=== PATIENT | female | born 1970 | race Caucasian/White ===

== ENCOUNTER 2016-12-10 13:57 | Emergency (ER) | payer MEDICAID ==
[2016-12-10 14:12] VITALS: BP 124/69
--- NOTE | 2016-12-10 15:00 | EDM.PDOC ---
ED HPI GENERAL MEDICAL PROBLEM - General Chief Complaint: Chest Pain Stated Complaint: CHEST PAIN Time Seen by Provider: 12/10/16 14:20 Source of Information: Reports: Patient History Limitations: Reports: No Limitations - History of Present Illness INITIAL COMMENTS - FREE TEXT/NARRATIVE: 46-year-old female with generalized malaise for the past week to 10 days, mild intermittent cough and shortness of breath today was lightheaded, woozy, and has had several episodes of brief sharp left anterior chest pain over the past 2 -3 days. She talked to her coworker who has some medical experience and she recommended she come in to be checked. On arrival she is having no pain, although she did have 2 very brief episodes while I was visiting with her. She points to a local area on the left anterior chest. No cough that is productive. Onset: Gradual (Over the past 7-10 days) Location: Reports: Chest Severity: Mild Associated Symptoms: Reports: Chest Pain, Cough, Other (Dizziness and lightheadedness) - Related Data Allergies Allergy/AdvReac Type Severity Reaction Status Date / Time No Known Allergies Allergy Verified 12/10/16 14:06 Home Meds: Home Meds Hydrocodone/Acetaminophen [[place] 5-325] 1 - 2 tab PO Q4H PRN #14 tablet [Rx] Ondansetron [Zofran ODT] 4 mg PO Q6H PRN #7 tab.dis 11/23/15 [Rx] Past Medical History [employer] History: Reports: Other Psychiatric History: SAD - Past Surgical History Female Surgical History: Reports: Section Musculoskeletal Surgical History: Reports: Arthroscopic Knee, Shoulder Surgery Social & Family History - Tobacco Use Smoking Status *Q: Unknown Ever Smoked Years of Tobacco use: 18 Packs/Tins Daily: 0.5 Second Hand Smoke Exposure: No - Caffeine Use Caffeine Use: Reports: Coffee - Alcohol Use Days Per Week of Alcohol Use: 0 Number of Drinks Per Day: 3 Total Drinks Per Week: 0 - Recreational Drug Use Recreational Drug Use: No ED ROS GENERAL - Review of Systems Review Of Systems: See Below Constitutional: Reports: Malaise, Weakness. Denies: Fever, Chills HEENT: Reports: Other (Some nasal congestion and posterior drainage) Respiratory: Reports: Cough. Denies: Shortness of Breath, Sputum Cardiovascular: Reports: Chest Pain (Intermittent left-sided focal tenderness, sharp and brief) GI/Abdominal: Reports: No Symptoms : Reports: No Symptoms Musculoskeletal: Reports: Muscle Pain (Generalized muscle aches) Skin: Reports: No Symptoms Neurological: Reports: Dizziness. Denies: Headache Psychiatric: Reports: No Symptoms ED EXAM, GENERAL - Physical Exam Exam: See Below Exam Limited By: No Limitations General Appearance: Alert, No Apparent Distress Eye Exam: Bilateral Eye: Normal Inspection Throat/Mouth: Normal Inspection Head: Atraumatic Respiratory/Chest: No Respiratory Distress, Lungs Clear Cardiovascular: Regular Rate, Rhythm GI/Abdominal: Non-Tender Extremities: No: Pedal Edema Neurological: Alert, Oriented Skin Exam: Warm, Dry Course - Vital Signs Last Recorded V/S: Last Vital Signs Temp 98.4 F 12/10/16 14:04 Pulse 80 12/10/16 14:04 Resp 14 12/10/16 14:04 BP 124/69 12/10/16 14:04 Pulse Ox 97 12/10/16 14:04 - Orders/Labs/Meds Orders: Active Orders 24 hr Category Date Time Status Chest 2V [CR] Routine Exams 12/10/16 14:29 Taken Labs: Laboratory Tests 12/10/16 12/10/16 Range/Units 14:42 14:42 WBC 9.9 (4.5-11.0) K/uL RBC 4.33 (3.30-5.50) M/uL Hgb 13.8 (12.0-15.0) g/dL Hct 40.8 (36.0-48.0) % MCV 94 (80-98) fL MCH 32 H (27-31) pg MCHC 34 (32-36) % Plt Count 261 (150-400) K/uL Neut % (Auto) 69 H (36-66) % Lymph % (Auto) 22 L (24-44) % [place] % (Auto) 8 H (2-6) % Eos % (Auto) 1 L (2-4) % Baso % (Auto) 0 (0-1) % Sodium 140 (140-148) mmol/L Potassium 3.9 (3.6-5.2) mmol/L Chloride 106 (100-108) mmol/L Carbon Dioxide 28 (21-32) mmol/L Anion Gap 6.4 (5.0-14.0) mmol/L BUN 12 (7-18) mg/dL Creatinine 0.9 (0.6-1.0) mg/dL Est Cr Clr Drug Dosing 77.57 mL/min Estimated GFR (MDRD) > 60 (>60) Glucose 82 (74-106) mg/dL Calcium 8.9 (8.5-10.1) mg/dL Troponin I < 0.017 (0.000-0.056) ng/mL - Re-Assessments/Exams Free Text/Narrative Re-Assessment/Exam: 12/10/16 15:00 O2 saturations are normal, patient is in a normal sinus rhythm with a rate of 70 is 75. Because of the prolonged symptoms a two-view chest x-ray, CBC BMP and troponin were obtained. 12/10/16 15:14 chest x-ray was normal. CBC was normal. BMP was normal troponin was 0. Discussed the symptoms with the patient, reassured her that this is likely a viral syndrome or bronchitis with a small amount costochondritis. She elected to give it some more time and will return if worsening. Departure - Departure Time of Disposition: 15:23 Disposition: Home, Self-Care 01 Clinical Impression: Viral bronchitis, Costochondritis, acute - Discharge Information Instructions: Nonspecific Chest Pain, [id number] Referrals: Jasmina Cox CNM [Primary Care Provider] - Forms: ED Department Discharge Care Plan Goals: Continue activity as tolerated, try to decrease smoking. Return anytime if worsening such as increasing shortness of breath, fever, or increasing pain. - My Orders Last 24 Hours: My Active Orders 12/10/16 14:29 Chest 2V [CR] Routine - Assessment/Plan Last 24 Hours: My Active Orders 12/10/16 14:29 Chest 2V [CR] Routine
--- NOTE | 2016-12-11 09:11 | CR ---
Chest 2V INDICATION: dyspnea FINDINGS: Negative chest.
== END 2016-12-10 15:26 | disposition home or self-care (01) ==
LOC: JP.ED 13:57
DX: J20.8 Acute bronchitis due to other specified organisms (principal); M94.0 Chondrocostal junction syndrome [Tietze]
CPT/HCPCS: 36415; 71020; 71020-26; 80048; 84484; 85025; 99285